=== PATIENT | female | born 1995 | race American Indian/Alaskan Native ===

== ENCOUNTER 2020-11-07 10:07 | Outpatient (CLI) | payer OTHER ==
[2020-11-07 11:18] VITALS: BP 112/77
== END 2020-11-07 13:07 | disposition home or self-care (01) ==
LOC: TRG 10:07 → APU 10:10 → TRG 13:07
PROVIDERS: ATTEND Obstetrics & Gynecology
DX: Z34.83 Encounter for supervision of other normal pregnancy, third trimester (principal); Z3A.37 37 weeks gestation of pregnancy
CPT/HCPCS: 59025

== ENCOUNTER 2020-11-13 03:01 | Inpatient (IN) | payer OTHER ==
[2020-11-13] MEDS ORDERED: TERBUTALINE 1 MG/1 ML INJ SUB-Q PRN (03:50)
[2020-11-13] MEDS ORDERED: PROMETHAZINE 25 MG TAB PO PRN ×2 (03:50→10:35)
[2020-11-13] MEDS ORDERED: AMPICILLIN/NS 2 GM/100 ML 2 GM/100 ML BAG IV ONE (03:50)
[2020-11-13] MEDS ORDERED: MINERAL OIL 30 ML ORAL LIQD PO PRN (03:50)
[2020-11-13] MEDS ORDERED: NALOXONE 0.4 MG/1 ML INJ IV PRN (03:50)
[2020-11-13] MEDS ORDERED: LIDOCAINE (2%) 20 MG/1 ML VIAL 20 ML MDV INFILTRATI ONE (03:50)
[2020-11-13] MEDS ORDERED: BUTORPHANOL 2 MG/1 ML INJ IV PRN ×2 (03:50)
[2020-11-13] MEDS ORDERED: fentaNYL 100 MCG/2 ML INJ IV PRN (03:50)
[2020-11-13] MEDS ORDERED: ePHEDrine SULFATE 50 MG/1 ML INJ IV PRN ×2 (03:50→07:20)
[2020-11-13] MEDS ORDERED: ONDANSETRON 4 MG/2 ML INJ IV PRN ×2 (03:50→10:35)
[2020-11-13] MEDS ORDERED: miSOPROStol 25 MCG TAB VG SCH (04:00)
[2020-11-13] MEDS ORDERED: LACTATED RINGERS 1,000 ML IV SCH ×2 (04:00→05:30)
[2020-11-13] MEDS ORDERED: OXYTOCIN DRIP 30 UNITS/500 ML BAG IV SCH (04:00)
[2020-11-13] MEDS ORDERED: hydrALAZINE 20 MG/1 ML INJ IV PRN (05:27)
[2020-11-13] MEDS ORDERED: MAGNESIUM SULFATE 4 GM/100 ML BAG IV ONE (05:27)
[2020-11-13] MEDS ORDERED: CALCIUM GLUCONATE 1000 MG/10 ML INJ IV ONE (05:27)
[2020-11-13] MEDS ORDERED: hydrALAZINE 20 MG/1 ML INJ IV ONE (05:30)
[2020-11-13 06:08] LABS: Benzodiazepines Screen,Urine PRESUMPTIVE NEGATIVE; Cannabinoid Screen,Urine PRESUMPTIVE NEGATIVE; Cocaine Screen,Urine PRESUMPTIVE NEGATIVE; Methadone Screen,Urine PRESUMPTIVE NEGATIVE; Opiate Screen,Urine PRESUMPTIVE NEGATIVE
[2020-11-13 06:21] LABS: Hemoglobin 11.1 gm/dl (10.1-14.3); Mean Corpuscular HGB Conc 34 % (30-34); Mean Corpuscular Volume 97 fl (79-97); Platelet Count 226 K/mm3 (140-440); Red Cell Distribution Width 14.2 % (13.2-15.2)
[2020-11-13 06:33] LABS: Alanine Aminotransferase 14 units/L (7-56); Albumin 3.5 g/dL (3.9-5); Blood Urea Nitrogen 8 mg/dL (7-17); Hemolysis Index 63; Uric Acid 5.2 mg/dL (3.5-7.6)
[2020-11-13] MEDS: MAGNESIUM SULFATE 40GM/1000ML 40 GM/1,000 ML BAG IV SCH (06:37)
[2020-11-13 06:39] LABS: BUN/Creatinine Ratio 13
[2020-11-13 07:15] LABS: Amphetamine Screen,Urine PRESUMPTIVE NEGATIVE
[2020-11-13] MEDS ORDERED: NALOXONE 2 MG/2 ML INJ IV PRN (07:20)
--- NOTE | 2020-11-13 07:20 | Anesthesia Consultation ---
Anesthesia Consult and Med Hx Date of service: 11/13/20 - Airway Anesthetic Teeth Evaluation: Good ROM Head & Neck: Adequate Mental/Hyoid Distance: Adequate Mallampati Class: Class II Intubation Access Assessment: Probably Good - Pulmonary Exam CTA: Yes - Cardiac Exam Cardiac Exam: RRR - Pre-Operative Health Status ASA Pre-Surgery Classification: ASA2 Proposed Anesthetic Plan: Epidural - Pulmonary Hx Asthma: No - Cardiovascular System Hx Hypertension: No - Central Nervous System Hx Seizures: No Hx Psychiatric Problems: No - Endocrine Hx Renal Disease: No Hx Hypothyroidism: No Hx Hyperthyroidism: No - Hematic Hx Anemia: Yes Hx Sickle Cell Disease: No - Other Systems Hx Alcohol Use: No
[2020-11-13] MEDS ORDERED: VANCOMYCIN 1,500 MG in SODIUM CHLORIDE 0.9% 500 ML 500 ML IV ONE ×2 (07:30→09:00)
--- NOTE | 2020-11-13 07:44 | History and Physical Report ---
History of Present Illness Date of examination: 11/13/20 Date of admission: 11/13/20 03:53 Chief complaint: Contractions History of present illness: Pt is a 25 yo at 38w5d EGA who presents reporting regular uterine contractions, and was found to have severe range BP in triage. She reports unilateral headache for the past three days, significant bilateral lower extremity edema, and positive movement. She denies scotomata, vaginal bleeding, or loss of fluid. She has received care with [facility], has not been seen since 30 weeks due to positive COVID-19. 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 She is GBS positive. Past History Past Medical History: arrhythmia Past Surgical History: no surgical history Social history: no significant social history - Obstetrical History Expected Date of Delivery: 11/22/20 Actual Gestation: 38 Week(s) 5 Day(s) : 1 Para: 0 Medications and Allergies Allergies Allergy/AdvReac Type Severity Reaction Status Date / Time Penicillins Allergy Anaphylaxis Verified 11/13/20 05:33 Active Meds: Active Medications Butorphanol Tartrate (Butorphanol 2 Mg/1 Ml Inj) 1 mg IV Q2H PRN PRN Reason: Pain, Moderate(4-6) LABOR PAIN Butorphanol Tartrate (Butorphanol 2 Mg/1 Ml Inj) 2 mg IV Q2H PRN PRN Reason: Pain , Severe (7-10) Last Admin: 11/13/20 05:47 Dose: 2 mg Documented by: Ephedrine Sulfate (Ephedrine Sulfate 50 Mg/1 Ml Inj) 10 mg IV Q2M PRN PRN Reason: Hypotension Ephedrine Sulfate (Ephedrine Sulfate 50 Mg/1 Ml Inj) 10 mg IV Q2M PRN PRN Reason: Hypotension Fentanyl (Fentanyl 100 Mcg/2 Ml Inj) 100 mcg IV Q2H PRN PRN Reason: Pain,Severe (7-10) LABOR PAIN Hydralazine HCl (Hydralazine 20 Mg/1 Ml Inj) 5 mg IV Q30MIN PRN PRN Reason: Hypertension Lactated Ringer's (Lactated Ringers) 1,000 mls @ 125 mls/hr IV DIRECT BERONICA Oxytocin/Sodium Chloride (Pitocin/Ns 30 Unit/500ml) 30 units in 500 mls @ 40 mls/hr IV TITR BERONICA; Protocol Magnesium Sulfate (Magnesium Sulfate 40gm/1000ml) 40 gm in 1,000 mls @ 50 mls/hr IV DIRECT BERONICA Last Admin: 11/13/20 06:37 Dose: 2 gm/hr, 50 mls/hr Documented by: Vancomycin HCl (Vancomycin/Ns 1 Gm/250 Ml) 1 gm in 250 mls @ 166.667 mls/hr IV Q12H BERONICA; Protocol Vancomycin HCl 1,500 mg/ (Sodium Chloride) 530 mls @ 333.333 mls/hr IV ONCE ONE Stop: 11/13/20 09:05 Fentanyl/Bupivacaine/Sodium Chlor (Fentanyl-Bupiv 2 Mcg/Ml-0.125%) 200 mcg in 100 mls @ 12 mls/hr EPIDURAL TITR BERONICA; Protocol Mineral Oil (Mineral Oil 30 Ml Oral Liqd) 30 ml PO QHS PRN PRN Reason: Constipation Misoprostol (Misoprostol 25 Mcg Tab) 25 mcg VG Q4H BERONICA Stop: 11/13/20 16:01 Naloxone HCl (Naloxone 0.4 Mg/1 Ml Inj) 0.1 mg IV Q2MIN PRN PRN Reason: Res Rate </= 8 or 02 SAT < 92% Naloxone HCl (Naloxone 2 Mg/2 Ml Inj) 0.2 mg IV Q5M PRN PRN Reason: Respiratory sedation Ondansetron HCl (Ondansetron 4 Mg/2 Ml Inj) 4 mg IV Q8H PRN PRN Reason: Nausea And Vomiting Promethazine HCl (Promethazine 25 Mg Tab) 25 mg PO Q6H PRN PRN Reason: Nausea And Vomiting Terbutaline Sulfate (Terbutaline 1 Mg/1 Ml Inj) 0.25 mg SUB-Q ONCE PRN PRN Reason: Hyperstimulation/Hypertonicity Review of Systems All systems: negative Eyes: no blurred vision Cardiovascular: leg edema, no chest pain Respiratory: no shortness of breath Genitourinary: contractions, no vaginal bleeding, no leakage of fluid Neurological: headaches - Vital Signs Vital signs: Vital Signs Pulse BP 82 160/102 11/13/20 03:26 11/13/20 03:26 Temp Pulse Resp BP Pulse Ox 98.6 F 103 H 18 145/88 99 11/13/20 03:27 11/13/20 07:38 11/13/20 05:47 11/13/20 07:38 11/13/20 07:38 - Physical Exam Abdomen: Positive: soft Uterus: Positive: enlarged (gravid) Extremities: Positive: edema (bilateral 2+ to mid-caro) - Obstetrical FHR: category 2 FHR comments: minimal variability, early decelerations Uterine Contraction Monitor Mode: External Cervical Dilatation: 8 (per RN) Uterine Contraction Pattern: Regular Uterine Tone Measurement Phase: Contraction Uterine Contraction Intensity: Strong/Firm Results Result Diagrams: 11/13/20 04:20 11/13/20 04:20 Abnormal lab results 11/13/20 11/13/20 Range/Units 04:20 04:20 RBC 3.40 L (3.65-5.03) M/mm3 MCH 33 H (28-32) pg Sodium 136 L (137-145) mmol/L Alkaline Phosphatase 161 H (35-129) units/L Albumin 3.5 L (3.9-5) g/dL All other labs normal. Assessment and Plan A: 25 yo at 38w5d EGA Preeclampsia with severe features Active labor Limited care GBS positive, membranes intact COVID-19 positive this Penicillin allergy P: Admit to L&D Magnesium sulfate for seizure prophylaxis Rescue Hydralazine PRN Antibiotic prophylaxis Epidural anesthesia as requested Anticipate
--- NOTE | 2020-11-13 07:47 | Progress Note ---
Labor Epidural - Labor Epidural Start Time: 07:27 Stop Time: 07:38 Performed by:: VIVIEN MOREIRA Procedure: Patient is requesting epidural for labor pain. H&P, and labs reviewed. Procedure explained, questions answered, consent obtained. Patient in sitting position with blood pressure cuff and pulse ox on and working. Timeout performed immediately before start of procedure. Sterile chlorahexadine 0.5% prep/drape. 3 mL 1% lidocaine skin wheal at L[3]-L[4]. 18-gauge Tuohy epidural needle advanced to [id number] with saline at [7] cm. Epidural dexmedetomidine [30] mcg administered. Epidural catheter advanced to [12] cm, negative aspiration for blood and csf, negative test dose 3 ml 1.5% lidocaine with epinephrine. Sterile steri-strips and tegaderm applied, followed by tape reinforcement. Patient tolerated procedure well. Shiv SABA
[2020-11-13] MEDS ORDERED: fentaNYL-BUPIV 2 MCG/ML-0.125% 200 MCG/100 ML BAG EPIDURAL SCH (08:00)
[2020-11-13] MEDS ORDERED: AMPICILLIN/NS 1 GM/50 ML 1 GM/50 ML BAG IV SCH (08:00)
[2020-11-13] MEDS ORDERED: VANCOMYCIN 1,000 MG/20 ML IV ONE (09:00)
[2020-11-13] MEDS ORDERED: miSOPROStol 200 MCG TAB ONE (10:10)
[2020-11-13] MEDS ORDERED: miSOPROStol 100 MCG TAB PR PRN (10:35)
[2020-11-13] MEDS ORDERED: MAGNESIUM HYDROXIDE (MOM) ORAL LIQD UDC PO PRN (10:35)
[2020-11-13] MEDS ORDERED: LANOLIN/ZINC/DIMETHICONE (LANSINOH) 7 GM TP PRN (10:35)
[2020-11-13] MEDS ORDERED: diphenhydrAMINE 25 MG CAP PO PRN (10:35)
[2020-11-13] MEDS ORDERED: WITCH HAZEL/ GLYCERIN PAD TP PRN (10:35)
[2020-11-13] MEDS ORDERED: PROMETHAZINE 25 MG RECT SUPP PR PRN (10:35)
--- NOTE | 2020-11-13 10:55 | Procedure Note ---
OB Delivery Note - Delivery Date of Delivery: 11/13/20 Surgeon: CRESCENCIO MILLER ([facility]) Estimated blood loss: 500cc - Vaginal Delivery presentation: vertex, compound Delivery position: OA Intrapartum events: preeclampsia Delivery induction: none Delivery augmentation: rupture of membranes Delivery monitor: external FHT, external uterine Route of delivery: Delivery placenta: manual Delivery cord: 3 umbilical vessels Episiotomy: none Delivery laceration: 1st degree Delivery repair: vicryl Anesthesia: epidural Delivery comments: Excellent maternal effort progressed to of viable female infant. FHR reassuring throughout second stage. Head delivered OA with compound hand, shoulders followed easily. No respiratory effort or tone, cord immediately clamped and cut and handed to peds team. Apgars 1/3/7/8. Cord gases collected. Pitocin infusing. Gentle traction applied to cord, avulsed from placenta. Manual removal of placenta 7 minutes after delivery of infant, intact, velamentous cord insertion. Central cotyledon black in color, suspect partial abruption. 800 mcg Cytotec placed LA. 1st degree perineal laceration repaired with 2-0 Vicryl to excellent hemostasis. Fundus firm, EBL 500cc. - Infant A at 1 minute: 1 at 5 minutes: 3 Infant Gender: Female
[2020-11-13] MEDS ORDERED: LOPERAMIDE 2 MG CAP PO PRN (11:11)
[2020-11-13] MEDS ORDERED: CARBOPROST TROMETHAMINE 250 MCG/1 ML INJ IM PRN (11:11)
[2020-11-13] MEDS ORDERED: DIPHENOXYLATE/ATROPINE TAB ONE (11:16)
[2020-11-13] MEDS ORDERED: DIPHENOXYLATE/ATROPINE TAB PO PRN (12:12)
[2020-11-13 12:24] LABS: Hemoglobin 10.3 gm/dl (10.1-14.3)
[2020-11-13] MEDS: IBUPROFEN 600 MG TAB PO SCH ×2 (17:35→23:33)
[2020-11-13] MEDS ORDERED: VANCOMYCIN/NS 1 GM/250 ML 1 GM/250 ML BAG IV SCH (21:00)
[2020-11-14 02:10] LABS: Hematocrit 26.4 % (30.3-42.9); Hemoglobin 8.8 gm/dl (10.1-14.3)
[2020-11-14] MEDS: MAGNESIUM SULFATE 40GM/1000ML 40 GM/1,000 ML BAG IV SCH (07:15)
--- NOTE | 2020-11-14 07:59 | Post Anesthesia Evaluation ---
- Post Anesthesia Evaluation Patient Participated: Yes Airway Patent: Yes Stable Respiratory Function: Yes Nausea/Vomiting: No Temp > 96.8F: Yes Pain Manageable: Yes Adequeate Hydration: Yes Anesthesia Complications: No Block Receding Appropriately: Yes Patient on Ventilator: No
--- NOTE | 2020-11-14 08:13 | Progress Note ---
Assessment and Plan - Patient Problems (1) Preeclampsia Current Visit: Yes Status: Acute Plan to address problem: transfer to [facility] once magnesium is completed routine care Subjective - Subjective Date of service: 11/14/20 Interval history: Patient is completing her 24hrs of magnesium therapy. Patient is without complaints. Remains normotensive. Patient reports: appetite normal, voiding normally, pain well controlled : doing well Objective - Vital Signs Latest vital signs: Vital Signs Temp Pulse Resp BP BP Pulse Ox 11/14/20 08:07 87 100 11/14/20 08:02 91 H 99 11/14/20 07:57 89 100 11/14/20 07:52 89 100 11/14/20 07:47 99 H 100 11/14/20 07:42 100 H 100 11/14/20 07:37 97 H 100 11/14/20 07:32 100 H 100 11/14/20 07:30 99.0 F 97 H 16 135/83 11/14/20 07:29 96 H 135/83 11/14/20 07:27 98 H 100 11/14/20 07:22 105 H 99 11/14/20 07:17 113 H 98 11/14/20 07:14 113 H 134/79 11/14/20 07:12 99 H 99 11/14/20 07:07 96 H 99 11/14/20 07:02 88 99 11/14/20 06:57 91 H 99 11/14/20 06:52 78 98 11/14/20 06:47 81 99 11/14/20 06:42 80 99 11/14/20 06:37 80 99 11/14/20 06:32 80 99 11/14/20 06:27 80 99 11/14/20 06:22 79 99 11/14/20 06:17 76 99 11/14/20 06:13 81 141/85 11/14/20 06:12 76 99 11/14/20 06:07 88 99 11/14/20 06:02 79 99 11/14/20 05:57 81 99 11/14/20 05:52 79 99 11/14/20 05:47 77 99 11/14/20 05:42 80 99 11/14/20 05:37 82 99 11/14/20 05:32 79 99 11/14/20 05:27 78 99 11/14/20 05:22 79 99 11/14/20 05:17 80 99 11/14/20 05:13 92 H 141/84 11/14/20 05:12 81 99 11/14/20 05:07 79 99 11/14/20 05:02 81 99 11/14/20 04:57 88 99 11/14/20 04:52 100 H 98 11/14/20 04:47 82 99 11/14/20 04:42 82 99 11/14/20 04:37 81 99 11/14/20 04:32 80 99 11/14/20 04:27 83 99 11/14/20 04:22 79 99 11/14/20 04:17 78 99 11/14/20 04:13 88 130/78 11/14/20 04:12 79 99 11/14/20 04:07 78 99 11/14/20 04:02 79 99 11/14/20 03:57 81 99 11/14/20 03:52 83 99 11/14/20 03:47 82 99 11/14/20 03:42 79 99 11/14/20 03:37 79 99 11/14/20 03:32 78 99 11/14/20 03:27 77 99 11/14/20 03:22 78 99 11/14/20 03:17 78 99 11/14/20 03:13 93 H 155/85 11/14/20 03:12 92 H 99 11/14/20 03:07 88 99 11/14/20 03:02 78 100 11/14/20 02:57 77 99 11/14/20 02:52 80 99 11/14/20 02:47 76 99 11/14/20 02:42 77 99 11/14/20 02:37 79 99 11/14/20 02:32 79 99 11/14/20 02:27 79 99 11/14/20 02:22 77 99 11/14/20 02:17 77 99 11/14/20 02:13 83 141/91 11/14/20 02:12 84 100 11/14/20 02:07 80 99 11/14/20 02:02 80 99 11/14/20 01:57 79 99 11/14/20 01:52 81 99 11/14/20 01:47 81 99 11/14/20 01:42 84 99 11/14/20 01:37 86 100 03/01/21 01:32 89 100 11/14/20 01:27 94 H 100 11/14/20 01:22 83 100 11/14/20 01:17 90 100 11/14/20 01:13 88 139/80 11/14/20 01:12 93 H 100 11/14/20 01:07 97 H 100 11/14/20 01:02 86 100 11/14/20 00:57 90 100 11/14/20 00:52 91 H 100 11/14/20 00:47 95 H 100 11/14/20 00:42 90 100 11/14/20 00:37 91 H 100 11/14/20 00:32 95 H 100 11/14/20 00:27 91 H 100 11/14/20 00:22 89 100 11/14/20 00:17 90 100 11/14/20 00:13 90 129/76 11/14/20 00:12 96 H 100 11/14/20 00:07 87 100 11/14/20 00:02 91 H 100 11/13/20 23:57 92 H 100 11/13/20 23:52 90 100 11/13/20 23:47 93 H 100 11/13/20 23:42 89 100 11/13/20 23:37 96 H 100 11/13/20 23:32 89 100 11/13/20 23:27 97 H 100 11/13/20 23:22 85 99 11/13/20 23:17 84 99 11/13/20 23:13 95 H 119/69 11/13/20 23:12 91 H 100 11/13/20 23:07 86 99 11/13/20 23:02 88 99 11/13/20 22:57 90 99 11/13/20 22:52 89 99 11/13/20 22:47 90 99 11/13/20 22:42 90 99 11/13/20 22:37 89 99 11/13/20 22:32 98 H 100 11/13/20 22:27 94 H 99 11/13/20 22:22 92 H 99 11/13/20 22:17 98 H 99 11/13/20 22:13 97 H 122/70 11/13/20 22:12 97 H 99 11/13/20 22:07 102 H 99 11/13/20 22:02 110 H 99 11/13/20 21:57 104 H 100 11/13/20 21:52 103 H 100 11/13/20 21:47 94 H 100 11/13/20 21:42 102 H 100 11/13/20 21:37 109 H 99 11/13/20 21:32 99 H 100 11/13/20 21:27 106 H 99 11/13/20 21:22 101 H 100 11/13/20 21:17 109 H 99 11/13/20 21:13 110 H 129/81 11/13/20 21:12 105 H 99 11/13/20 21:07 107 H 99 11/13/20 21:02 95 H 99 11/13/20 20:57 98 H 99 11/13/20 20:52 100 H 99 11/13/20 20:47 97 H 100 11/13/20 20:42 107 H 99 11/13/20 20:37 105 H 99 11/13/20 20:32 97 H 99 11/13/20 20:27 102 H 99 11/13/20 20:22 101 H 100 11/13/20 20:17 103 H 100 11/13/20 20:13 101 H 133/85 11/13/20 20:12 104 H 99 11/13/20 20:07 107 H 99 11/13/20 20:02 100 H 100 11/13/20 19:57 105 H 100 11/13/20 19:52 108 H 100 11/13/20 19:47 114 H 100 11/13/20 19:42 104 H 100 11/13/20 19:37 107 H 100 11/13/20 19:32 106 H 100 11/13/20 19:27 105 H 100 11/13/20 19:22 110 H 100 11/13/20 19:17 120 H 99 11/13/20 19:13 107 H 129/89 11/13/20 19:12 113 H 100 11/13/20 19:07 112 H 100 11/13/20 19:02 117 H 100 11/13/20 18:57 114 H 100 11/13/20 18:52 115 H 100 11/13/20 18:47 115 H 100 11/13/20 18:42 104 H 100 11/13/20 18:37 106 H 100 11/13/20 18:32 107 H 100 11/13/20 18:30 99.8 F H 11/13/20 18:27 101 H 100 11/13/20 18:22 99 H 100 11/13/20 18:17 109 H 100 11/13/20 18:13 99 H 131/83 11/13/20 18:12 103 H 100 11/13/20 18:07 107 H 100 11/13/20 18:02 106 H 100 11/13/20 17:57 107 H 100 11/13/20 17:52 115 H 100 11/13/20 17:47 111 H 100 11/13/20 17:42 116 H 100 11/13/20 17:37 120 H 100 11/13/20 17:32 111 H 100 11/13/20 17:27 112 H 100 11/13/20 17:22 105 H 100 11/13/20 17:17 118 H 100 11/13/20 17:13 120 H 124/91 11/13/20 17:12 107 H 100 11/13/20 17:07 108 H 100 11/13/20 17:02 119 H 99 11/13/20 16:57 96 H 99 11/13/20 16:52 97 H 100 11/13/20 16:47 99 H 100 11/13/20 16:42 98 H 100 11/13/20 16:37 103 H 100 11/13/20 16:32 98 H 100 11/13/20 16:27 98 H 100 11/13/20 16:22 116 H 99 11/13/20 16:17 98 H 100 11/13/20 16:13 104 H 128/81 11/13/20 16:12 96 H 99 11/13/20 16:07 103 H 99 11/13/20 16:02 100 H 99 11/13/20 15:57 100 H 99 11/13/20 15:52 98 H 99 11/13/20 15:47 97 H 100 11/13/20 15:42 98 H 99 11/13/20 15:37 96 H 100 11/13/20 15:35 99.3 F 11/13/20 15:32 98 H 99 11/13/20 15:28 98 H 100 11/13/20 15:23 98 H 100 11/13/20 15:18 108 H 100 11/13/20 15:13 107 H 100 11/13/20 15:07 116 H 100 11/13/20 15:03 114 H 100 11/13/20 14:58 114 H 100 11/13/20 14:52 111 H 100 11/13/20 14:48 112 H 100 11/13/20 14:43 104 H 135/86 11/13/20 14:42 111 H 99 11/13/20 14:38 115 H 100 11/13/20 14:33 125 H 99 11/13/20 14:27 121 H 100 11/13/20 14:23 110 H 100 11/13/20 14:18 123 H 99 11/13/20 14:13 104 H 127/77 99 11/13/20 14:08 103 H 99 11/13/20 14:03 105 H 99 11/13/20 13:58 106 H 127/75 99 11/13/20 13:53 100 H 98 11/13/20 13:48 102 H 98 11/13/20 13:43 110 H 136/76 100 11/13/20 13:37 111 H 99 11/13/20 13:33 102 H 99 11/13/20 13:28 114 H 130/79 99 11/13/20 13:23 104 H 98 11/13/20 13:18 102 H 98 11/13/20 13:13 100 H 134/84 99 11/13/20 13:08 109 H 99 11/13/20 13:03 105 H 99 11/13/20 12:58 108 H 136/84 99 11/13/20 12:53 117 H 99 11/13/20 12:48 124 H 98 11/13/20 12:43 142 H 207/123 99 11/13/20 12:38 133 H 98 11/13/20 12:33 140 H 100 11/13/20 12:28 135 H 100 11/13/20 12:23 124 H 100 11/13/20 12:18 118 H 99 11/13/20 12:13 112 H 121/79 100 11/13/20 12:08 127 H 99 11/13/20 12:03 113 H 100 11/13/20 11:58 120 H 100 11/13/20 11:53 121 H 100 11/13/20 11:48 119 H 99 11/13/20 11:43 120 H 111/70 99 11/13/20 11:37 115 H 99 11/13/20 11:33 112 H 100 11/13/20 11:28 107 H 118/74 99 11/13/20 11:26 103 H 117/77 11/13/20 11:23 103 H 100 11/13/20 11:18 132 H 99 11/13/20 11:13 122 H 100 11/13/20 11:08 124 H 100 11/13/20 11:03 124 H 100 11/13/20 10:58 125 H 98 11/13/20 10:53 125 H 99 11/13/20 10:48 122 H 100 11/13/20 10:43 119 H 100 11/13/20 10:38 114 H 99 11/13/20 10:33 93 H 99 11/13/20 10:28 88 114/65 100 11/13/20 10:23 82 100 11/13/20 10:18 91 H 100 11/13/20 10:13 84 100 11/13/20 10:08 83 100 11/13/20 10:03 123 H 100 11/13/20 09:58 115 H 100 11/13/20 09:53 133 H 100 11/13/20 09:48 117 H 100 11/13/20 09:43 91 H 100 11/13/20 09:38 74 100 11/13/20 09:33 95 H 100 11/13/20 09:28 83 100 11/13/20 09:23 80 100 11/13/20 09:22 78 127/76 11/13/20 09:18 84 100 11/13/20 09:13 75 100 11/13/20 09:08 79 100 11/13/20 09:03 75 100 11/13/20 08:58 75 100 11/13/20 08:53 79 100 11/13/20 08:52 82 122/69 11/13/20 08:48 77 100 11/13/20 08:43 75 100 11/13/20 08:38 78 100 11/13/20 08:33 77 100 11/13/20 08:28 76 100 11/13/20 08:23 78 100 11/13/20 08:21 80 139/84 11/13/20 08:18 78 100 11/13/20 08:13 77 100 Intake and Output 11/13/20 11/14/20 11/14/20 22:59 06:59 14:59 Intake Total 1000 Output Total 1325 700 750 Balance -1325 300 -750 Intake: IV 1000 MAGNESIUM SULFATE 40GM/ 1000 1000ML 40 gm In 1,000 ml @ 2 GM/HR 50 mls/hr IV DIRECT BERONICA Rx#:[id number] Output: Urine 1325 700 750 Indwelling Catheter 1325 700 750 Other: Total, Output Amount 150 200 750 - Labs Labs: Abnormal lab results 11/13/20 11/13/20 11/13/20 Range/Units 10:30 10:33 11:54 Hgb (10.1-14.3) gm/dl Hct (30.3-42.9) % ABG pH 7.179 L 7.222 L (7.320-7.450) POC ABG pCO2 53.2 H (32.0-48.0) mmHg POC ABG pO2 15.5 L 19.4 L (83-108) mmHg ABG Oxyhemoglobin 23.5 L 40.3 L (94-98) ABG Sodium 133.0 L 132.9 L (136.0-145.0) mmol/L Carboxyhemoglobin 0.1 L (0.5-1.5) Magnesium 6.60 H (1.7-2.3) mg/dL Arterial Blood Ionized Calcium 5.7 H 5.9 H (4.6-5.3) mg/dL 11/13/20 11/14/20 11/14/20 Range/Units 17:32 01:32 01:32 Hgb 8.8 L (10.1-14.3) gm/dl Hct 26.4 L (30.3-42.9) % ABG pH (7.320-7.450) POC ABG pCO2 (32.0-48.0) mmHg POC ABG pO2 (83-108) mmHg ABG Oxyhemoglobin (94-98) ABG Sodium (136.0-145.0) mmol/L Carboxyhemoglobin (0.5-1.5) Magnesium 7.50 H 6.30 H (1.7-2.3) mg/dL Arterial Blood Ionized Calcium (4.6-5.3) mg/dL 11/14/20 Range/Units 07:32 Hgb (10.1-14.3) gm/dl Hct (30.3-42.9) % ABG pH (7.320-7.450) POC ABG pCO2 (32.0-48.0) mmHg POC ABG pO2 (83-108) mmHg ABG Oxyhemoglobin (94-98) ABG Sodium (136.0-145.0) mmol/L Carboxyhemoglobin (0.5-1.5) Magnesium 5.90 H (1.7-2.3) mg/dL Arterial Blood Ionized Calcium (4.6-5.3) mg/dL
[2020-11-14] MEDS: IBUPROFEN 600 MG TAB PO SCH ×3 (11:40→23:00)
[2020-11-15] MEDS: IBUPROFEN 600 MG TAB PO SCH (05:03)
--- NOTE | 2020-11-15 07:38 | Progress Note ---
Assessment and Plan A: PPD2 s/p at term. Preeclampsia s/p mag sulfate Vital signs stable P:Continue with routine care with anticipated discharge today. Subjective - Subjective Date of service: 11/15/20 Principal diagnosis: s/p at term. Preeclampsia Interval history: PPD1 s/p at term. Patient is feeling well and is without complaints at this time. Patient reports: appetite normal, voiding normally, pain well controlled, ambulating normally [place]: doing well Objective - Vital Signs Latest vital signs: Vital Signs Temp Pulse Resp BP BP Pulse Ox 11/15/20 01:18 98.1 F 92 H 20 120/81 100 11/14/20 16:02 98.6 F 98 H 18 131/74 99 11/14/20 10:17 99.1 F 90 18 147/94 100 11/14/20 10:03 60 87 11/14/20 10:02 116 H 100 11/14/20 09:59 98.9 F 100 H 16 135/79 100 11/14/20 09:57 91 H 135/79 100 11/14/20 09:52 84 99 11/14/20 09:47 82 99 11/14/20 09:42 85 99 11/14/20 09:37 89 99 11/14/20 09:32 89 100 11/14/20 09:27 94 H 99 11/14/20 09:22 91 H 100 11/14/20 09:21 99.0 F 100 H 16 138/86 100 11/14/20 09:17 93 H 100 11/14/20 09:13 99 H 138/86 11/14/20 09:12 90 100 11/14/20 09:07 100 H 100 11/14/20 09:02 87 99 11/14/20 08:57 86 99 11/14/20 08:52 94 H 100 11/14/20 08:47 97 H 100 11/14/20 08:42 115 H 100 11/14/20 08:37 90 99 11/14/20 08:32 92 H 99 11/14/20 08:27 96 H 100 11/14/20 08:24 99.0 F 88 16 130/82 97 11/14/20 08:22 100 H 100 11/14/20 08:17 95 H 99 11/14/20 08:13 87 130/82 11/14/20 08:12 94 H 99 11/14/20 08:07 87 100 11/14/20 08:02 91 H 99 11/14/20 07:57 89 100 11/14/20 07:52 89 100 11/14/20 07:47 99 H 100 11/14/20 07:42 100 H 100 Intake and Output 11/14/20 11/14/20 11/15/20 15:59 23:59 07:59 Intake Total 65.833 240 360 Output Total 1300 600 Balance -1234.167 240 -240 Intake: IV 65.833 MAGNESIUM SULFATE 40GM/ 65.833 1000ML 40 gm In 1,000 ml @ 2 GM/HR 50 mls/hr IV DIRECT BERONICA Rx#:[id number] Oral 240 Intake, Free Water 360 Output: Urine 1300 600 Indwelling Catheter 1000 Void 300 600 Other: Total, Intake Amount 240 Total, Output Amount 300 600 # Voids Void 1 - Exam Breasts: Present: deferred Uterus: Present: firm, fundal height below umbilicus - Labs Labs: Abnormal lab results 11/14/20 Range/Units 07:32 Magnesium 5.90 H (1.7-2.3) mg/dL
--- NOTE | 2020-11-15 08:10 | Discharge Summary ---
Providers - Providers Date of Admission: 11/13/20 03:53 Date of discharge: 11/15/20 Attending physician: LINDA CRUZ Primary care physician: LINDA CRUZ Hospitalization Reason for admission: active labor (Preeclampsia) Delivery: Episiotomy: none Laceration: 1st degree Other procedures: none complications: none Discharge diagnosis: IUP at term delivered Disposition: DC-30 STILL A PATIENT Plan - Discharge Medications Prescriptions: Ferrous Sulfate [Feosol 325 MG tab] 325 mg PO BID #60 tablet Ibuprofen [Motrin] 800 mg PO Q8HR PRN #30 tablet PRN Reason: Pain, Moderate (4-6) - Provider Discharge Summary Activity: no sex for 6 weeks, no heavy lifting 4 weeks, no strenuous exercise Diet: routine Instructions: routine Additional instructions: [] Smoking cessation referral if applicable(refer to patient education folder for contact #) [] Refer to [facility] Booklet Call your doctor immediately for: * Fever > 100.5 * Heavy vaginal bleeding ( >1 pad per hour) * Severe persistent headache * Shortness of breath * Reddened, hot, painful area to leg or breast * Drainage or odor from incision. * Keep incision clean and dry at all times and follow doctor's instructions regarding bathing/showering Please return to clinic in 7 days for blood-pressure check. - Follow up plan Follow up: CRESCENCIO MILLER CNM [Advanced Practice Nurse] - 7 Days
[2020-11-15 12:19] VITALS: BP 135/88
== END 2020-11-15 14:14 | disposition home or self-care (01) | DRG 775 ==
LOC: TRG 03:01 → APU 03:02 → TRG 03:53 → LD 03:53 → OB 11-14 10:25
PROVIDERS: ADMIT Obstetrics & Gynecology; ATTEND Obstetrics & Gynecology
PROC: 10E0XZZ Delivery of Products of Conception, External Approach (ICD-10-PCS; principal; 2020-11-13)
PROC: 0HQ9XZZ Repair Perineum Skin, External Approach (ICD-10-PCS; 2020-11-13)
PROC: 3E0R3BZ Introduction of Anesthetic Agent into Spinal Canal, Percutaneous Approach (ICD-10-PCS; 2020-11-13)
PROC: 00HU33Z Insertion of Infusion Device into Spinal Canal, Percutaneous Approach (ICD-10-PCS; 2020-11-13)
DX: O14.94 Unspecified pre-eclampsia, complicating childbirth (principal); Z3A.38 38 weeks gestation of pregnancy; Z37.0 Single live birth; O70.0 First degree perineal laceration during delivery; O99.824 Streptococcus B carrier state complicating childbirth; Z88.0 Allergy status to penicillin; Z86.16 Personal history of COVID-19; Z20.822 Contact with and (suspected) exposure to COVID-19; O71.89 Other specified obstetric trauma
CPT/HCPCS: 36415; 80053; 80307; 82805; 83735; 84550; 85014; 85018; 85027; 86592; 86850; 86900; 86901; 88307; G0378; J0360; J0595; J3475; J7120; U0003

== ENCOUNTER 2021-03-09 10:45 | Emergency (ER) | payer OTHER ==
[2021-03-09 11:01] VITALS: BP 117/77
--- NOTE | 2021-03-09 11:05 | Emergency Department Report ---
Chief Complaint: Extremity Injury, Upper Stated Complaint: RT HAND PAINS Time Seen by Provider: 03/09/21 11:02 - HPI History of Present Illness: 25 yo comes in with r wrist pain. 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 No trauma. Full ROM. - ROS Review of Systems: r wrist pain- her usual carpal tunnel pain - Exam Vital Signs: Vital Signs 03/09/21 11:00 Temperature 98.7 F Pulse Rate 80 Respiratory 16 Rate Blood Pressure 117/77 O2 Sat by Pulse 100 Oximetry Physical Exam: full rom neurovasc intact rapid cap refill forearm and elbow exam wnl no swelling no pain on palpation MSE screening note: Focused history and physical exam performed. Due to findings the following was ordered: a/c pain/condition no new trauma Pt MSE with pcp follow up Pt educated on plan of care including pcp followup Patient discussed with doctor:: SOULEYMANE YING ED Disposition for MSE Clinical Impression: Hand pain, right Disposition: Z-07 MED SCREENING EXAM-LEFT Is pt being admited?: No Does the pt Need Aspirin: No Condition: Stable Instructions: Carpal Tunnel Syndrome, [id number] Additional Instructions: TAKE MOTRIN 800 MG EVERY 8 HOURS, WITH FOOD FOLLOW UP WITH MD BELOW Referrals: LIGIA HERNANDEZ MD [Staff Physician] - 3-5 Days CHRISTINA LAROSE MD [Staff Physician] - 3-5 Days Forms: Work/School Release Form(ED) Time of Disposition: 11:03
== END 2021-03-09 11:10 | disposition left against medical advice (07) ==
LOC: ED 10:45
DX: M25.541 Pain in joints of right hand (principal); Z53.21 Procedure and treatment not carried out due to patient leaving prior to being seen by health care provider

== ENCOUNTER 2022-01-18 11:05 | Emergency (ER) | payer OTHER ==
[2022-01-18 12:11] VITALS: BP 125/81
== END 2022-01-18 17:45 | disposition left against medical advice (07) ==
LOC: ED 11:05
DX: K59.00 Constipation, unspecified (principal); Z53.21 Procedure and treatment not carried out due to patient leaving prior to being seen by health care provider